=== PATIENT | male | born 1970 | race Asian ===

== ENCOUNTER → 2017-05-18 | Outpatient (CLI) | payer OTHER ==
[2017-05-18 13:31] LABS: BASO % 0.2 %; BASO ABS # 0.01 K/uL (0-0.2); COMPLETE YES; EOS % 0.3 %; HEMATOCRIT 42.8 % (42-52); IG% 0.2 %; LYMPH ABS # 2.23 K/uL (1.2-3.4); MEAN CELL VOLUME 87.2 fL (80-100); MEAN CORPUSCULAR HEMOGLOBIN 30.1 pg (25-34); MEAN CORPUSCULAR HGB CONC 34.6 g/dl (32-36); MEAN PLATELET VOLUME 10.3 fL (7.4-10.4); MONO % 5.7 %; NEUT % 58.6 %; PLATELET COUNT 255 K/uL (130-400); RED BLOOD COUNT 4.91 M/uL (4.7-6.1); WHITE BLOOD COUNT 6.37 K/uL (4.8-10.8)
[2017-05-18 15:17] LABS: LYME DISEASE AB IGG NEG (NEG); LYME DISEASE AB IGM NEG (NEG)
== END | disposition home or self-care (01) ==
LOC: C.LABBC 11:47
PROVIDERS: ATTEND Physician Assistant
DX: H93.19 Tinnitus, unspecified ear (principal)

== ENCOUNTER → 2017-05-18 | Outpatient (CLI) | payer OTHER ==
[~2017-05-18] MED LIST: GADAVIST IV PRN
--- NOTE | 2017-05-18 13:09 | DIAGNOSTIC IMAGING REPORT ---
BRAIN COMBO FOR IAC CLINICAL HISTORY: SUDDEN HEARING LOSS,TINNITIS TECHNIQUE: Multiaxial MRI acquisition COMPARISON STUDY: None FINDINGS: 5 mm pituitary macroadenoma. Sella and parasellar regions otherwise are unremarkable. The internal artery canals are symmetric. No abnormal enhancement characteristics. Signal characteristics of the cerebellar as well as cerebral hemispheres are unremarkable. There is no abnormal postcontrast enhancement. Ventricular system is midline. 7th and 8th nerves show no evidence for abnormal enhancement. Diffusion-weighted images are negative for an acute ischemic event. IMPRESSION: 1. Normal internal auditory canals. 2. Normal brain. 3. 5 mm pituitary microadenoma The above report was generated using voice recognition software. It may contain grammatical, syntax or spelling errors. Electronically signed by: Alexis aGtes M.D. 05/18/2017 1:08 PM Dictated Date/Time: 05/18/2017 1:02 PM
== END | disposition home or self-care (01) ==
LOC: C.MRIBC 11:36
PROVIDERS: ATTEND Physician Assistant
DX: H91.20 Sudden idiopathic hearing loss, unspecified ear (principal); H93.19 Tinnitus, unspecified ear; D35.2 Benign neoplasm of pituitary gland